=== PATIENT | female | born 1970 | race Caucasian/White ===

== ENCOUNTER 2021-09-22 21:09 | Inpatient (IN) | payer OTHER ==
[2021-09-22] MEDS ORDERED: FAMOTIDINE 20 MG/50 ML IVPB 20 MG/50 ML MG IVPB ONE (21:43)
[2021-09-22] MEDS ORDERED: morphine SULFATE 4 MG/ML VIAL IVPUSH ONE (21:43)
[2021-09-22] MEDS ORDERED: LACTATED RINGERS SOLUTION 1000 ML INFUS.BAG IV ONE (21:43)
[2021-09-22] MEDS ORDERED: ACETAMINOPHEN 1000 MG/100 ML BAG IVPB ONE (21:43)
[2021-09-22] MEDS ORDERED: MAG HYDROX/AL HYDROX/SIMETH -MYLANTA- ORAL SUSPENSION PO ONE (21:45)
[2021-09-22] MEDS ORDERED: FAMOTIDINE 10 MG/ML VIAL IVPB ONE (22:06)
[2021-09-22] MEDS ORDERED: MAG HYDROX/AL HYDROX/SIMETH 30 ML UNIT-DOSE CUP ONE (22:06)
[2021-09-22] MEDS ORDERED: ONDANSETRON 4 MG/2 ML VIAL IVPUSH ONE (22:15)
[2021-09-22 22:41] LABS: BASO % 0.7 % (0-2.0); EOS % 0.1 % (0-4.5); HEMATOCRIT 35.1 % (32.4-45.2); HEMOGLOBIN 12.1 GM/dL (10.7-15.3); LYMPH % 10.5 % (8-40); MCH 29.7 pg (25.7-33.7); MCHC 34.4 g/dl (32.0-36.0); MEAN CELL VOLUME 86.2 fl (80-96); MEAN PLT VOLUME 8.1 fl (7.5-11.1); MONO % 5.4 % (3.8-10.2); NEUT % 83.3 % (42.8-82.8); PLATELET COUNT 238 10^3/uL (134-434); RBC 4.07 M/mm3 (3.60-5.2); WHITE BLOOD COUNT 9.2 K/mm3 (4.0-10.0)
[2021-09-22 23:06] LABS: ALBUMIN 3.2 g/dl (3.4-5.0); BLOOD UREA NITROGEN 22.2 mg/dL (7-18); CALCIUM 9.3 mg/dL (8.5-10.1)
[2021-09-22 23:11] LABS: BILIRUBIN,TOTAL 0.6 mg/dL (0.2-1); TOT PROT 6.8 g/dl (6.4-8.2)
[2021-09-22] MEDS ORDERED: CEPHALEXIN MONOHYDRATE 500 MG CAPSULE (UD) ONE (23:32)
[2021-09-23] MEDS ORDERED: morphine SULFATE 4 MG/ML VIAL IVPUSH ONE (01:27)
[2021-09-23] MEDS ORDERED: morphine SULFATE 4 MG/ML VIAL ONE (01:32)
[2021-09-23] MEDS ORDERED: ASPIRIN 81 MG CHEWABLE TABLETS PO ONE (02:24)
[2021-09-23] MEDS ORDERED: MAG HYDROX/AL HYDROX/SIMETH 30 ML UNIT-DOSE CUP PO PRN (03:30)
[2021-09-23] MEDS ORDERED: LISINOPRIL 20 MG TABLET PO ONE (03:33)
[2021-09-23] MEDS ORDERED: INSULIN (LEVEMIR) 100 UNITS/ML UNITS SQ SCH ×4 (04:00→06:00)
[2021-09-23] MEDS ORDERED: INSULIN (NOVOLOG) ASPART 100 UNITS/ML 10ML VIAL SQ ONE (04:00)
[2021-09-23] MEDS: PANTOPRAZOLE 40 MG TABLET PO SCH ×2 (05:00→09:04)
[2021-09-23] MEDS ORDERED: LISINOPRIL 20 MG TABLET ONE (05:07)
[2021-09-23] MEDS ORDERED: ASPIRIN 81 MG CHEWABLE TABLETS ONE (05:07)
[2021-09-23] MEDS ORDERED: PANTOPRAZOLE 40 MG TABLET PO ONE (05:07)
[2021-09-23] MEDS ORDERED: ONDANSETRON 4 MG/2 ML VIAL ONE (05:44)
[2021-09-23] MEDS: ONDANSETRON 4 MG/2 ML VIAL IVPUSH PRN ×3 (05:45→20:12)
[2021-09-23 06:20] LABS: CALCIUM 8.7 mg/dL (8.5-10.1)
[2021-09-23 06:21] LABS: BLOOD UREA NITROGEN 22.2 mg/dL (7-18); MAGNESIUM 2.2 mg/dL (1.8-2.4)
[2021-09-23 06:24] LABS: PHOSPHOROUS 5.7 mg/dL (2.5-4.9)
[2021-09-23 06:25] LABS: BILIRUBIN,TOTAL 0.6 mg/dL (0.2-1); HEMATOCRIT 34.4 % (32.4-45.2); HEMOGLOBIN 11.6 GM/dL (10.7-15.3); MCH 29.5 pg (25.7-33.7); MCHC 33.7 g/dl (32.0-36.0); MEAN CELL VOLUME 87.6 fl (80-96); MEAN PLT VOLUME 8.4 fl (7.5-11.1); PLATELET COUNT 222 10^3/uL (134-434); RBC 3.93 M/mm3 (3.60-5.2); RDW 13.2 % (11.6-15.6); TOT PROT 6.4 g/dl (6.4-8.2); WHITE BLOOD COUNT 8.4 K/mm3 (4.0-10.0)
[2021-09-23] MEDS: INSULIN SLIDING SCALE (NOVOLOG) 1 VIAL SQ SCH ×4 (07:51→22:07)
[2021-09-23] MEDS: ENOXAPARIN NA (PORCINE) 40 MG/0.4 ML DISP.SYRIN SQ SCH (09:09)
[2021-09-23 09:24] VITALS: BMI 25.1
[2021-09-23] MEDS: morphine SULFATE 4 MG/ML VIAL IVPUSH PRN ×2 (09:55→21:20)
[2021-09-23 11:24] LABS: URINE APPEARANCE HAZY; URINE BILIRUBIN NEGATIVE (NEGATIVE); URINE COLOR YELLOW; URINE GLUCOSE (UA) >1000 (NEGATIVE); URINE KETONE TRACE (NEGATIVE)
[2021-09-23 11:25] LABS: EPI CELLS 22.4 /uL (0-25.1); URINE BACTERIA 9.1 /uL (0-1359); URINE LEUK ESTERASE NEGATIVE (NEGATIVE); URINE NITRITE NEGATIVE (NEGATIVE); URINE PROTEIN 3+ (NEGATIVE); URINE RBC 36.5 /uL (0-23.9); URINE UROBILINOGEN 0.2 mg/dL (0.2-1.0); URINE WBC 16.9 /uL (0-25.8)
[2021-09-23] MEDS: ACETAMINOPHEN 1000 MG/100 ML BAG IVPB PRN (14:16)
[2021-09-23] MEDS ORDERED: hydrALAZINE HCL 20 MG/ML VIAL IVPUSH PRN (14:54)
[2021-09-23] MEDS ORDERED: POTASSIUM CHLORIDE 10 MEQ in SODIUM CHLORIDE 0.45% 1,000 ML IVPB SCH (16:15)
[2021-09-23] MEDS: METOCLOPRAMIDE HCL INJECTION 10 MG/2 ML VIAL IVPUSH PRN (16:29)
[2021-09-23] MEDS: SODIUM CHLORIDE 0.45% 1,000 ML IV SCH (17:45)
[2021-09-23] MEDS: INSULIN (LEVEMIR) 100 UNITS/ML UNITS SQ SCH (22:07)
[2021-09-24] MEDS: PANTOPRAZOLE SODIUM 40 MG VIAL IVPUSH SCH ×2 (00:16→09:36)
[2021-09-24] MEDS: METOCLOPRAMIDE HCL INJECTION 10 MG/2 ML VIAL IVPUSH PRN ×2 (01:00→09:33)
[2021-09-24] MEDS: ACETAMINOPHEN 1000 MG/100 ML BAG IVPB PRN (03:12)
[2021-09-24] MEDS: ONDANSETRON 4 MG/2 ML VIAL IVPUSH PRN (05:09)
[2021-09-24] MEDS: morphine SULFATE 4 MG/ML VIAL IVPUSH PRN (05:19)
[2021-09-24] MEDS: INSULIN (LEVEMIR) 100 UNITS/ML UNITS SQ SCH ×2 (06:02→22:05)
[2021-09-24] MEDS: INSULIN SLIDING SCALE (NOVOLOG) 1 VIAL SQ SCH ×4 (07:03→22:05)
[2021-09-24 07:56] LABS: BASO % 0.5 % (0-2.0); HEMATOCRIT 30.3 % (32.4-45.2); HEMOGLOBIN 10.4 GM/dL (10.7-15.3); LYMPH % 16.8 % (8-40); MCHC 34.5 g/dl (32.0-36.0); MEAN CELL VOLUME 87.1 fl (80-96); MEAN PLT VOLUME 8.4 fl (7.5-11.1); MONO % 8.9 % (3.8-10.2); NEUT % 73.8 % (42.8-82.8); PLATELET COUNT 209 10^3/uL (134-434); RBC 3.48 M/mm3 (3.60-5.2); RDW 12.9 % (11.6-15.6); WHITE BLOOD COUNT 6.6 K/mm3 (4.0-10.0)
[2021-09-24 08:20] LABS: ALBUMIN 2.6 g/dl (3.4-5.0); CALCIUM 7.9 mg/dL (8.5-10.1)
[2021-09-24 08:21] LABS: BLOOD UREA NITROGEN 23.3 mg/dL (7-18)
[2021-09-24 08:23] LABS: CREATININE 0.8 mg/dL (0.55-1.3)
[2021-09-24 08:25] LABS: BILIRUBIN,TOTAL 0.8 mg/dL (0.2-1); TOT PROT 5.6 g/dl (6.4-8.2)
[2021-09-24] MEDS ORDERED: INSULIN (LEVEMIR) 100 UNITS/ML UNITS SQ SCH (09:30)
[2021-09-24] MEDS: ENOXAPARIN NA (PORCINE) 40 MG/0.4 ML DISP.SYRIN SQ SCH (09:36)
[2021-09-24] MEDS ORDERED: LISINOPRIL 20 MG TABLET PO SCH (10:00)
[2021-09-24 12:21] LABS: PHENCYCLIDINE,URINE NEGATIVE (NEGATIVE); URINE BENZODIAZEPINES NEGATIVE (NEGATIVE)
[2021-09-24 12:22] LABS: COCAINE, UR NEGATIVE (NEGATIVE); METHADONE, UR NEGATIVE (NEGATIVE)
[2021-09-24 12:24] LABS: OPIATES, URI POSITIVE (NEGATIVE); URINE AMPHETAMINES NEGATIVE (NEGATIVE); URINE BARBITURATES NEGATIVE (NEGATIVE)
[2021-09-24] MEDS ORDERED: LABETALOL HCL 5 MG/1 ML (100MG/20 ML VIAL) IVPUSH PRN ×2 (13:49→21:42)
[2021-09-24] MEDS ORDERED: POTASSIUM CHLORIDE 10 MEQ PREMIX IVPB (POTASSIUM RIDER) IVPB SCH (13:52)
[2021-09-24] MEDS ORDERED: LORazepam 2 MG/ML SDV VIAL IVPUSH ONE (13:54)
[2021-09-24] MEDS ORDERED: METOCLOPRAMIDE HCL INJECTION 10 MG/2 ML VIAL IVPUSH SCH (14:15)
[2021-09-24] MEDS: POTASSIUM CHLORIDE 10 MEQ PREMIX IVPB (POTASSIUM RIDER) IVPB SCH ×2 (17:19→19:01)
[2021-09-24] MEDS ORDERED: NICARDIPINE 25 MG in DEXTROSE 5%-WATER - 240 ML IVPB SCH (19:00)
[2021-09-24] MEDS: SODIUM CHLORIDE 0.45% 1,000 ML IV SCH (19:54)
[2021-09-24] MEDS ORDERED: MAG HYDROX/AL HYDROX/SIMETH 30 ML UNIT-DOSE CUP PO PRN (21:42)
[2021-09-24] MEDS ORDERED: niCARdipine HCL 25 MG/10 ML AMPUL IVPB ONE (21:48)
[2021-09-24] MEDS ORDERED: CHLORHEXIDINE GLUCONATE 4% CLEANSER FOR DECOLONIZATION TP SCH (22:00)
[2021-09-24] MEDS ORDERED: MUPIROCIN 2% TOPICAL OINTMENT FOR DECOLONIZATION NS SCH (22:00)
[2021-09-24] MEDS: MUPIROCIN 2% TOPICAL OINTMENT FOR DECOLONIZATION NS SCH (23:25)
[2021-09-24] MEDS: CHLORHEXIDINE GLUCONATE 4% CLEANSER FOR DECOLONIZATION TP SCH (23:25)
[2021-09-25] MEDS: METOCLOPRAMIDE HCL INJECTION 10 MG/2 ML VIAL IVPUSH SCH ×3 (02:10→17:22)
[2021-09-25] MEDS: INSULIN (LEVEMIR) 100 UNITS/ML UNITS SQ SCH ×2 (06:36→21:27)
[2021-09-25] MEDS: INSULIN SLIDING SCALE (NOVOLOG) 1 VIAL SQ SCH ×4 (06:38→21:27)
[2021-09-25 07:38] LABS: BASO % 0.7 % (0-2.0); EOS % 0.5 % (0-4.5); HEMATOCRIT 32.8 % (32.4-45.2); HEMOGLOBIN 11.1 GM/dL (10.7-15.3); LYMPH % 30.3 % (8-40); MCH 29.3 pg (25.7-33.7); MCHC 33.9 g/dl (32.0-36.0); MEAN CELL VOLUME 86.4 fl (80-96); MEAN PLT VOLUME 8.1 fl (7.5-11.1); MONO % 11.7 % (3.8-10.2); NEUT % 56.8 % (42.8-82.8); PLATELET COUNT 212 10^3/uL (134-434); RBC 3.79 M/mm3 (3.60-5.2); RDW 12.7 % (11.6-15.6); WHITE BLOOD COUNT 6.5 K/mm3 (4.0-10.0)
[2021-09-25 07:55] LABS: ALBUMIN 2.4 g/dl (3.4-5.0); CALCIUM 7.9 mg/dL (8.5-10.1)
[2021-09-25 07:56] LABS: BLOOD UREA NITROGEN 21.4 mg/dL (7-18); MAGNESIUM 2.4 mg/dL (1.8-2.4)
[2021-09-25 07:58] LABS: CREATININE 0.9 mg/dL (0.55-1.3)
[2021-09-25 08:00] LABS: BILIRUBIN,TOTAL 0.8 mg/dL (0.2-1); TOT PROT 5.4 g/dl (6.4-8.2)
[2021-09-25] MEDS: LISINOPRIL 20 MG TABLET PO SCH (09:24)
[2021-09-25] MEDS: MUPIROCIN 2% TOPICAL OINTMENT FOR DECOLONIZATION NS SCH ×2 (09:36→21:28)
[2021-09-25] MEDS ORDERED: PANTOPRAZOLE SODIUM 40 MG VIAL IVPUSH SCH (10:00)
[2021-09-25] MEDS: NIFEdipine E.R. 30 MG TABLET PO SCH (11:58)
[2021-09-25] MEDS: CHLORHEXIDINE GLUCONATE 4% CLEANSER FOR DECOLONIZATION TP SCH (21:28)
[2021-09-26] MEDS: METOCLOPRAMIDE HCL INJECTION 10 MG/2 ML VIAL IVPUSH SCH ×2 (01:32→09:13)
[2021-09-26] MEDS: INSULIN SLIDING SCALE (NOVOLOG) 1 VIAL SQ SCH ×4 (06:19→22:07)
[2021-09-26] MEDS: INSULIN (LEVEMIR) 100 UNITS/ML UNITS SQ SCH ×2 (06:19→22:06)
[2021-09-26 07:20] LABS: MCH 29.6 pg (25.7-33.7); MCHC 34.6 g/dl (32.0-36.0); MEAN CELL VOLUME 85.6 fl (80-96); MEAN PLT VOLUME 8.2 fl (7.5-11.1); PLATELET COUNT 216 10^3/uL (134-434); RBC 3.74 M/mm3 (3.60-5.2); RDW 12.6 % (11.6-15.6); WHITE BLOOD COUNT 4.7 K/mm3 (4.0-10.0)
[2021-09-26 07:32] LABS: CALCIUM 7.9 mg/dL (8.5-10.1)
[2021-09-26 07:33] LABS: ALBUMIN 2.2 g/dl (3.4-5.0)
[2021-09-26 07:36] LABS: BLOOD UREA NITROGEN 12.3 mg/dL (7-18); CREATININE 0.7 mg/dL (0.55-1.3)
[2021-09-26 07:37] LABS: BILIRUBIN,TOTAL 0.6 mg/dL (0.2-1)
[2021-09-26] MEDS: NIFEdipine E.R. 30 MG TABLET PO SCH (09:13)
[2021-09-26] MEDS: LISINOPRIL 20 MG TABLET PO SCH (09:13)
[2021-09-26] MEDS: MUPIROCIN 2% TOPICAL OINTMENT FOR DECOLONIZATION NS SCH (09:14)
[2021-09-26] MEDS ORDERED: PANTOPRAZOLE 40 MG TABLET PO SCH (10:00)
[2021-09-26] MEDS ORDERED: POTASSIUM CHLORIDE TABS 20 MEQ TABLET.ER (FP) PO ONE (19:09)
[2021-09-26] MEDS ORDERED: LABETALOL HCL 5 MG/1 ML (100MG/20 ML VIAL) IVPUSH PRN (19:46)
[2021-09-26 21:23] LABS: MAGNESIUM 2.4 mg/dL (1.8-2.4)
[2021-09-27] MEDS: INSULIN (LEVEMIR) 100 UNITS/ML UNITS SQ SCH ×2 (06:18→21:25)
[2021-09-27] MEDS: INSULIN SLIDING SCALE (NOVOLOG) 1 VIAL SQ SCH ×4 (06:19→21:25)
[2021-09-27 07:24] LABS: BASO % 0.7 % (0-2.0); EOS % 5.6 % (0-4.5); HEMATOCRIT 30.8 % (32.4-45.2); HEMOGLOBIN 10.6 GM/dL (10.7-15.3); LYMPH % 43.6 % (8-40); MCH 29.8 pg (25.7-33.7); MCHC 34.5 g/dl (32.0-36.0); MEAN CELL VOLUME 86.5 fl (80-96); MEAN PLT VOLUME 8.3 fl (7.5-11.1); MONO % 14.3 % (3.8-10.2); NEUT % 35.8 % (42.8-82.8); PLATELET COUNT 205 10^3/uL (134-434); RBC 3.57 M/mm3 (3.60-5.2); RDW 12.7 % (11.6-15.6); WHITE BLOOD COUNT 4.2 K/mm3 (4.0-10.0)
[2021-09-27 07:41] LABS: ALBUMIN 2.2 g/dl (3.4-5.0); CALCIUM 7.9 mg/dL (8.5-10.1)
[2021-09-27 07:42] LABS: BLOOD UREA NITROGEN 11.6 mg/dL (7-18); MAGNESIUM 2.4 mg/dL (1.8-2.4)
[2021-09-27 07:44] LABS: CREATININE 0.7 mg/dL (0.55-1.3); PHOSPHOROUS 3.6 mg/dL (2.5-4.9)
[2021-09-27 07:46] LABS: BILIRUBIN,TOTAL 0.5 mg/dL (0.2-1); TOT PROT 5.1 g/dl (6.4-8.2)
[2021-09-27] MEDS: NIFEdipine E.R 60 MG TABLET PO SCH (09:19)
[2021-09-27] MEDS: PANTOPRAZOLE 20 MG TABLET PO SCH (09:19)
[2021-09-27] MEDS ORDERED: NIFEdipine E.R. 30 MG TABLET PO SCH (10:00)
[2021-09-27] MEDS ORDERED: LISINOPRIL 20 MG TABLET PO SCH (10:00)
[2021-09-27 11:47] LABS: HEMATOCRIT 30.8 % (32.4-45.2); HEMOGLOBIN 10.6 GM/dL (10.7-15.3); MCH 29.9 pg (25.7-33.7); MCHC 34.5 g/dl (32.0-36.0); MEAN CELL VOLUME 86.5 fl (80-96); MEAN PLT VOLUME 7.9 fl (7.5-11.1); PLATELET COUNT 207 10^3/uL (134-434); RBC 3.56 M/mm3 (3.60-5.2); RDW 12.6 % (11.6-15.6); WHITE BLOOD COUNT 3.6 K/mm3 (4.0-10.0)
[2021-09-27 12:11] LABS: ALBUMIN 2.2 g/dl (3.4-5.0); CALCIUM 7.9 mg/dL (8.5-10.1)
[2021-09-27 12:13] LABS: CREATININE 0.8 mg/dL (0.55-1.3)
[2021-09-27 12:15] LABS: BILIRUBIN,TOTAL 0.7 mg/dL (0.2-1)
[2021-09-28 07:15] LABS: HEMATOCRIT 29.8 % (32.4-45.2); HEMOGLOBIN 10.3 GM/dL (10.7-15.3); MCH 29.6 pg (25.7-33.7); MCHC 34.4 g/dl (32.0-36.0); MEAN CELL VOLUME 86.2 fl (80-96); MEAN PLT VOLUME 8.3 fl (7.5-11.1); PLATELET COUNT 222 10^3/uL (134-434); RBC 3.46 M/mm3 (3.60-5.2); RDW 12.5 % (11.6-15.6); WHITE BLOOD COUNT 4.8 K/mm3 (4.0-10.0)
[2021-09-28] MEDS: INSULIN SLIDING SCALE (NOVOLOG) 1 VIAL SQ SCH ×2 (07:17→10:45)
[2021-09-28] MEDS: INSULIN (LEVEMIR) 100 UNITS/ML UNITS SQ SCH (07:17)
[2021-09-28 07:33] LABS: BLOOD UREA NITROGEN 15.8 mg/dL (7-18); CALCIUM 8.2 mg/dL (8.5-10.1)
[2021-09-28 07:37] LABS: CREATININE 0.6 mg/dL (0.55-1.3)
[2021-09-28] MEDS ORDERED: HYDROCHLOROTHIAZIDE 25 MG TABLET (FP) PO ONE (09:30)
[2021-09-28] MEDS: NIFEdipine E.R 60 MG TABLET PO SCH (09:52)
[2021-09-28] MEDS: PANTOPRAZOLE 20 MG TABLET PO SCH (09:52)
[2021-09-28] MEDS ORDERED: HYDROCHLOROTHIAZIDE 25 MG TABLET (FP) PO SCH (10:00)
[2021-09-28 13:37] VITALS: BP 167/82; PULSE 84; TEMP 98.3
[2021-09-28] MEDS ORDERED: LISINOPRIL 20 MG TABLET PO SCH (22:00)
[2021-10-09 16:08] LABS: RENIN ACTIVITY(PRA) 0.491 ng/mL/hr (0.167-5.380)
== END 2021-09-28 13:46 | disposition home or self-care (01) | DRG 44 ==
LOC: JER 21:09 → JERBED 09-23 02:27 → OBSVTOIN 09-23 03:39 → J4W 09-23 05:57 → JICU 09-24 21:36 → J2W 09-26 19:44
PROVIDERS: ADMIT Hospitalist
DX: I62.01 Nontraumatic acute subdural hemorrhage (principal); E11.43 Type 2 diabetes mellitus with diabetic autonomic (poly)neuropathy; I16.1 Hypertensive emergency; I10 Essential (primary) hypertension; E78.5 Hyperlipidemia, unspecified; K31.84 Gastroparesis; E11.65 Type 2 diabetes mellitus with hyperglycemia; R11.2 Nausea with vomiting, unspecified; I16.0 Hypertensive urgency; N31.9 Neuromuscular dysfunction of bladder, unspecified; K21.9 Gastro-esophageal reflux disease without esophagitis; R33.9 Retention of urine, unspecified; D25.9 Leiomyoma of uterus, unspecified
CPT/HCPCS: 36415; 70450-TC; 70496-TC; 70498-TC; 71046-TC-FY; 71275-TC; 74174-TC; 76705-TC; 80048; 80053; 80307; 81003; 82088; 82384; 82533; 82962; 83036; 83690; 83735; 83835; 84100; 84244; 84439; 84443; 84484; 85025; 85027; 87086; 93005; 93010; 97116-GP; 97161-GP; 99285-25; C9803-CS; G0378; Q9967; U0003; U0005

== ENCOUNTER 2021-10-20 06:45 | Inpatient (IN) | payer OTHER ==
[2021-10-20] MEDS ORDERED: MAG HYDROX/AL HYDROX/SIMETH 30 ML UNIT-DOSE CUP ONE (07:34)
[2021-10-20] MEDS ORDERED: ACETAMINOPHEN INJECTION 100 ML IVPB ONE ×2 (07:34→15:23)
[2021-10-20] MEDS ORDERED: FAMOTIDINE 20 MG/50 ML IVPB 20 MG/50 ML MG IVPB ONE ×2 (07:34→07:43)
[2021-10-20] MEDS ORDERED: ACETAMINOPHEN 1000 MG/100 ML BAG IVPB ONE ×2 (07:43→15:23)
[2021-10-20] MEDS ORDERED: MAG HYDROX/AL HYDROX/SIMETH 30 ML UNIT-DOSE CUP PO ONE (07:43)
[2021-10-20] MEDS ORDERED: SODIUM CHLORIDE 0.9% 500 ML INFUS.BAG IV ONE (07:48)
[2021-10-20 08:57] LABS: VENOUS BASE EXCESS 2.5 mmol/L (-2-2); VENOUS O2 SATURATION 78.6 % (70-80); VENOUS PCO2 27.2 mmHg (38-52); VENOUS PH 7.557 (7.310-7.410)
[2021-10-20 09:14] LABS: BASO % 0.6 % (0-2.0); HEMATOCRIT 36.1 % (32.4-45.2); HEMOGLOBIN 12.6 GM/dL (10.7-15.3); LYMPH % 14.3 % (8-40); MCHC 34.8 g/dl (32.0-36.0); MEAN CELL VOLUME 86.4 fl (80-96); MEAN PLT VOLUME 9.3 fl (7.5-11.1); MONO % 9.4 % (3.8-10.2); NEUT % 75.7 % (42.8-82.8); PLATELET COUNT 248 10^3/uL (134-434); RBC 4.18 M/mm3 (3.60-5.2); RDW 12.6 % (11.6-15.6); WHITE BLOOD COUNT 8.5 K/mm3 (4.0-10.0)
[2021-10-20 09:19] LABS: CHLORIDE 91 mmol/L (98-107); SODIUM 132 mmol/L (136-145)
[2021-10-20 09:22] LABS: ALBUMIN 3.5 g/dl (3.4-5.0); ANION GAP 16 MMOL/L (8-16); BLOOD UREA NITROGEN 41.1 mg/dL (7-18); CALCIUM 9.4 mg/dL (8.5-10.1); CO2 25 mmol/L (21-32); LIPASE 98 U/L (73-393)
[2021-10-20 09:25] LABS: CREATININE 1.7 mg/dL (0.55-1.3); SGOT/AST 15 U/L (15-37); SGPT/ALT 28 U/L (13-61)
[2021-10-20 09:26] LABS: BILIRUBIN,TOTAL 0.8 mg/dL (0.2-1)
[2021-10-20] MEDS ORDERED: ONDANSETRON 4 MG/2 ML VIAL IVPUSH ONE (09:26)
[2021-10-20 09:27] LABS: TOT PROT 7.7 g/dl (6.4-8.2)
[2021-10-20] MEDS ORDERED: ONDANSETRON 4 MG/2 ML VIAL ONE (09:27)
[2021-10-20 09:28] LABS: ALK PHOS 107 U/L (45-117)
[2021-10-20 09:36] LABS: GLUCOSE,RANDOM 602 mg/dL (74-106)
[2021-10-20] MEDS ORDERED: INSULIN REGULAR HUMAN 100 UNITS/ML *VIAL IVPUSH ONE (10:09)
[2021-10-20] MEDS ORDERED: KCL 10 MEQ IVPB 20 MEQ/200 ML INFUS.BAG IVPB ONE (10:17)
[2021-10-20] MEDS: KCL 10 MEQ IVPB 10 MEQ/100 ML INFUS.BAG IVPB SCH ×2 (10:23→12:19)
[2021-10-20 15:03] LABS: CHLORIDE 102 mmol/L (98-107); SODIUM 138 mmol/L (136-145)
[2021-10-20 15:05] LABS: ANION GAP 9 MMOL/L (8-16); BLOOD UREA NITROGEN 35.6 mg/dL (7-18); CO2 27 mmol/L (21-32)
[2021-10-20 15:08] LABS: CREATININE 1.1 mg/dL (0.55-1.3)
[2021-10-20 15:29] LABS: GLUCOSE,RANDOM 415 mg/dL (74-106)
[2021-10-20 16:34] LABS: CHOLESTEROL 221 mg/dL (50-200); TRIGLYCERIDES 190 mg/dL (0-150)
[2021-10-20 16:35] LABS: LDL CHOLESTEROL (ONLY SJRH) 114 mg/dL (5-100)
[2021-10-20 16:37] LABS: HDL CHOLESTEROL 80 mg/dL (40-60)
[2021-10-20] MEDS ORDERED: ACETAMINOPHEN 1000 MG/100 ML BAG IVPB PRN (21:07)
[2021-10-20] MEDS ORDERED: morphine CARPU-JECT 2 MG/1 ML DISP.SYRIN IVPUSH PRN (21:08)
[2021-10-21] MEDS ORDERED: ACETAMINOPHEN INJECTION 100 ML IVPB ONE (03:21)
[2021-10-21] MEDS ORDERED: INSULIN (LEVEMIR) 100 UNITS/ML UNITS SQ SCH (07:00)
[2021-10-21] MEDS ORDERED: HEPARIN NA (PORCINE) 5,000 UNITS/ML 1ML VIAL ONE ×3 (07:12→22:36)
[2021-10-21] MEDS: HEPARIN NA (PORCINE) 5,000 UNITS/ML 1ML VIAL SQ SCH ×3 (07:19→22:42)
[2021-10-21] MEDS ORDERED: INSULIN (LEVEMIR) 100 UNITS/ML UNITS SQ ONE (07:22)
[2021-10-21] MEDS ORDERED: INSULIN (NOVOLOG MIX 70/30) 100 UNITS/ML MDV SQ ONE (07:23)
[2021-10-21] MEDS: INSULIN SLIDING SCALE (NOVOLOG) 1 VIAL SQ SCH ×4 (08:19→23:25)
[2021-10-21 08:27] LABS: BASO % 0.8 % (0-2.0); HEMATOCRIT 34.8 % (32.4-45.2); LYMPH % 13.5 % (8-40); MCH 30.1 pg (25.7-33.7); MCHC 34.6 g/dl (32.0-36.0); MEAN CELL VOLUME 86.8 fl (80-96); MEAN PLT VOLUME 8.9 fl (7.5-11.1); MONO % 7.6 % (3.8-10.2); NEUT % 78.1 % (42.8-82.8); PLATELET COUNT 212 10^3/uL (134-434); RDW 12.6 % (11.6-15.6); WHITE BLOOD COUNT 7.7 K/mm3 (4.0-10.0)
[2021-10-21 08:41] LABS: CALCIUM 8.6 mg/dL (8.5-10.1)
[2021-10-21] MEDS ORDERED: ONDANSETRON 4 MG/2 ML VIAL ONE ×2 (08:41→14:39)
[2021-10-21 08:42] LABS: MAGNESIUM 3.1 mg/dL (1.8-2.4)
[2021-10-21 08:44] LABS: PHOSPHOROUS 3.4 mg/dL (2.5-4.9)
[2021-10-21 08:45] LABS: CREATININE 0.9 mg/dL (0.55-1.3)
[2021-10-21 08:46] LABS: BILIRUBIN,TOTAL 0.7 mg/dL (0.2-1); TOT PROT 6.5 g/dl (6.4-8.2)
[2021-10-21] MEDS: ONDANSETRON 4 MG/2 ML VIAL IVPUSH PRN ×2 (08:49→14:49)
[2021-10-21] MEDS ORDERED: PANTOPRAZOLE 20 MG TABLET PO ONE (09:58)
[2021-10-21] MEDS ORDERED: NIFEdipine E.R 60 MG TABLET ONE (09:58)
[2021-10-21] MEDS: PANTOPRAZOLE 20 MG TABLET PO SCH (10:05)
[2021-10-21] MEDS: NIFEdipine E.R 60 MG TABLET PO SCH (10:05)
[2021-10-21] MEDS ORDERED: MAG HYDROX/AL HYDROX/SIMETH 30 ML UNIT-DOSE CUP ONE ×2 (12:39→18:50)
[2021-10-21] MEDS: MAG HYDROX/AL HYDROX/SIMETH 30 ML UNIT-DOSE CUP PO SCH ×3 (12:44→23:46)
[2021-10-21] MEDS ORDERED: ATORVASTATIN CA 10 MG TABLET (FP) ONE (22:36)
[2021-10-21] MEDS: ATORVASTATIN CA 10 MG TABLET (FP) PO SCH (22:42)
[2021-10-21] MEDS: INSULIN (LEVEMIR) 100 UNITS/ML UNITS SQ SCH (23:25)
[2021-10-22] MEDS: HEPARIN NA (PORCINE) 5,000 UNITS/ML 1ML VIAL SQ SCH ×3 (05:45→21:45)
[2021-10-22] MEDS: MAG HYDROX/AL HYDROX/SIMETH 30 ML UNIT-DOSE CUP PO SCH ×3 (05:45→18:30)
[2021-10-22] MEDS: INSULIN (LEVEMIR) 100 UNITS/ML UNITS SQ SCH ×2 (07:34→21:51)
[2021-10-22] MEDS: INSULIN SLIDING SCALE (NOVOLOG) 1 VIAL SQ SCH ×4 (07:34→21:52)
[2021-10-22 07:41] LABS: BASO % 1.2 % (0-2.0); EOS % 0.1 % (0-4.5); HEMATOCRIT 34.1 % (32.4-45.2); HEMOGLOBIN 12.1 GM/dL (10.7-15.3); LYMPH % 26.4 % (8-40); MCHC 35.3 g/dl (32.0-36.0); MEAN CELL VOLUME 84.8 fl (80-96); MEAN PLT VOLUME 8.7 fl (7.5-11.1); MONO % 9.8 % (3.8-10.2); NEUT % 62.5 % (42.8-82.8); PLATELET COUNT 212 10^3/uL (134-434); RBC 4.02 M/mm3 (3.60-5.2); RDW 12.6 % (11.6-15.6); WHITE BLOOD COUNT 5.8 K/mm3 (4.0-10.0)
[2021-10-22 08:09] LABS: ALBUMIN 2.6 g/dl (3.4-5.0); CALCIUM 8.1 mg/dL (8.5-10.1); MAGNESIUM 2.9 mg/dL (1.8-2.4)
[2021-10-22 08:12] LABS: CREATININE 0.7 mg/dL (0.55-1.3); PHOSPHOROUS 1.9 mg/dL (2.5-4.9)
[2021-10-22 08:14] LABS: BILIRUBIN,TOTAL 0.7 mg/dL (0.2-1)
[2021-10-22] MEDS: NIFEdipine E.R 60 MG TABLET PO SCH (10:01)
[2021-10-22] MEDS: PANTOPRAZOLE 20 MG TABLET PO SCH (10:01)
[2021-10-22] MEDS ORDERED: POTASSIUM PHOSPHATE 15 MM in SODIUM CHLORIDE 250 ML IVPB ONE (10:55)
[2021-10-22] MEDS: METOCLOPRAMIDE HCL INJECTION 10 MG/2 ML VIAL IVPUSH PRN (11:37)
[2021-10-22 13:21] VITALS: BMI 24.6
[2021-10-22] MEDS: ATORVASTATIN CA 10 MG TABLET (FP) PO SCH (21:45)
[2021-10-23] MEDS: MAG HYDROX/AL HYDROX/SIMETH 30 ML UNIT-DOSE CUP PO SCH ×4 (00:35→17:41)
[2021-10-23] MEDS: HEPARIN NA (PORCINE) 5,000 UNITS/ML 1ML VIAL SQ SCH ×3 (06:45→21:44)
[2021-10-23] MEDS: INSULIN SLIDING SCALE (NOVOLOG) 1 VIAL SQ SCH ×4 (06:46→21:45)
[2021-10-23] MEDS: INSULIN (LEVEMIR) 100 UNITS/ML UNITS SQ SCH ×2 (07:01→21:44)
[2021-10-23] MEDS: PANTOPRAZOLE 40 MG TABLET PO SCH ×2 (08:32→09:41)
[2021-10-23] MEDS: NIFEdipine E.R. 90 MG TABLET PO SCH ×2 (08:33→09:41)
[2021-10-23] MEDS ORDERED: REGADENOSON 0.4 MG/5 ML PRE-FILLED SYRINGE IVPUSH ONE ×2 (12:40→12:45)
[2021-10-23] MEDS ORDERED: LISINOPRIL 5 MG TABLET PO SCH (13:45)
[2021-10-23] MEDS ORDERED: ATORVASTATIN CA 40 MG TABLET (FP) PO SCH (15:27)
[2021-10-23] MEDS: METOCLOPRAMIDE HCL INJECTION 10 MG/2 ML VIAL IVPUSH PRN (15:46)
[2021-10-24] MEDS: MAG HYDROX/AL HYDROX/SIMETH 30 ML UNIT-DOSE CUP PO SCH ×3 (01:05→12:07)
[2021-10-24] MEDS: HEPARIN NA (PORCINE) 5,000 UNITS/ML 1ML VIAL SQ SCH ×2 (06:36→13:31)
[2021-10-24] MEDS: INSULIN (LEVEMIR) 100 UNITS/ML UNITS SQ SCH (06:37)
[2021-10-24] MEDS: INSULIN SLIDING SCALE (NOVOLOG) 1 VIAL SQ SCH ×2 (06:37→11:52)
[2021-10-24] MEDS: NIFEdipine E.R. 90 MG TABLET PO SCH (09:41)
[2021-10-24] MEDS: PANTOPRAZOLE 40 MG TABLET PO SCH (09:41)
[2021-10-24] MEDS ORDERED: ENALAPRIL MALEATE 10 MG TABLET PO SCH (10:00)
[2021-10-24] MEDS ORDERED: MINERAL OIL ENEMA 133 ML ENEMA RC ONE (12:45)
[2021-10-24 14:57] VITALS: BP 115/61; PULSE 84; TEMP 98.2
== END 2021-10-24 15:33 | disposition home or self-care (01) | DRG 48 ==
LOC: JER 06:45 → JERBED 10:11 → J4W 10-21 23:13
PROVIDERS: ADMIT Internal Medicine
DX: E11.43 Type 2 diabetes mellitus with diabetic autonomic (poly)neuropathy (principal); N17.9 Acute kidney failure, unspecified; E11.65 Type 2 diabetes mellitus with hyperglycemia; I25.2 Old myocardial infarction; K29.70 Gastritis, unspecified, without bleeding; R11.2 Nausea with vomiting, unspecified; K31.84 Gastroparesis; E78.5 Hyperlipidemia, unspecified; K21.9 Gastro-esophageal reflux disease without esophagitis
CPT/HCPCS: 36415; 70450-TC; 71045-TC-FY; 71275-TC; 78452-TC; 80048; 80053; 80061; 82010; 82803; 82962; 83036; 83690; 83735; 84100; 84443; 84484; 85025; 85379; 93005; 93010; 93017; 93306-TC; 99285-25; A9502; C9803-CS; J1644; J2785; Q9967; U0003; U0005

== ENCOUNTER 2022-02-20 13:58 | Emergency (ER) | payer OTHER ==
[2022-02-20 14:06] VITALS: BP 159/78; PULSE 90; RESP 20; TEMP 97.6; BMI 26.6
[2022-02-20] MEDS ORDERED: KETOROLAC TROMETHAMINE 30 MG/1 ML VIAL IM ONE (14:51)
[2022-02-20] MEDS ORDERED: KETOROLAC TROMETHAMINE 30 MG/1 ML VIAL ONE (14:54)
[2022-02-20 15:15] LABS: HCG,QUALITATIVE URINE Negative
[2022-02-20 15:17] LABS: EPI CELLS 12 /uL (0-25.1); HYALINE CASTS 4 /uL (0-3.1); URINE APPEARANCE TURBID; URINE BILIRUBIN NEGATIVE (NEGATIVE); URINE COLOR YELLOW; URINE GLUCOSE (UA) 2+ (NEGATIVE); URINE KETONE NEGATIVE (NEGATIVE); URINE LEUK ESTERASE 3+ (NEGATIVE); URINE NITRITE POSITIVE (NEGATIVE); URINE PROTEIN 4+ (NEGATIVE); URINE UROBILINOGEN 0.2 mg/dL (0.2-1.0); URINE WBC 13316 /uL (0-25.8)
[2022-02-20] MEDS ORDERED: CEPHALEXIN MONOHYDRATE 500 MG CAPSULE (UD) PO ONE (15:31)
[2022-02-20 15:33] LABS: URINE BACTERIA 2000 /uL (0-1359); URINE RBC 955.6 /uL (0-23.9)
[2022-02-20] MEDS ORDERED: CEPHALEXIN MONOHYDRATE 500 MG CAPSULE (UD) ONE (15:33)
[2022-02-20 15:34] LABS: YEAST NO SEEN (NEGATIVE)
== END 2022-02-20 15:42 | disposition home or self-care (01) ==
LOC: JERFT 13:58
PROC: 3E0233Z Introduction of Anti-inflammatory into Muscle, Percutaneous Approach (ICD-10-PCS; principal; 2022-02-20)
DX: N39.0 Urinary tract infection, site not specified (principal)
CPT/HCPCS: 81003; 84703; 87086; 87186; 99284-25

== ENCOUNTER 2022-11-13 12:02 | Emergency (ER) | payer OTHER ==
[2022-11-13 12:18] VITALS: BP 108/51; PULSE 101; RESP 18; TEMP 99.9; BMI 27.8
[2022-11-13] MEDS ORDERED: SODIUM CHLORIDE 0.9% 500 ML INFUS.BAG IV ONE (13:04)
[2022-11-13] MEDS ORDERED: FAMOTIDINE 20 MG/50 ML IVPB 20 MG/50 ML MG IVPB ONE ×2 (13:05→13:31)
[2022-11-13 13:23] LABS: BASO % 0.6 % (0-2.0); HEMATOCRIT 32.5 % (32.4-45.2); HEMOGLOBIN 10.7 GM/dL (10.7-15.3); LYMPH % 5.5 % (8-40); MCHC 33.1 g/dl (32.0-36.0); MEAN CELL VOLUME 87.5 fl (80-96); MEAN PLT VOLUME 8.7 fl (7.5-11.1); MONO % 5.3 % (3.8-10.2); NEUT % 86.6 % (42.8-82.8); PLATELET COUNT 259 10^3/uL (134-434); RBC 3.71 M/mm3 (3.60-5.2); RDW 12.5 % (11.6-15.6); WHITE BLOOD COUNT 10.9 K/mm3 (4.0-10.0)
[2022-11-13 13:26] LABS: EPI CELLS 20 /uL (0-25.1); HYALINE CASTS 0 /uL (0-3.1); PH,URINE 5.5 (5.0-8.0); URINE APPEARANCE CLOUDY; URINE BACTERIA 5674 /uL (0-1359); URINE BILIRUBIN NEGATIVE (NEGATIVE); URINE COLOR YELLOW; URINE GLUCOSE (UA) 3+ (NEGATIVE); URINE KETONE NEGATIVE (NEGATIVE); URINE LEUK ESTERASE 2+ (NEGATIVE); URINE NITRITE NEGATIVE (NEGATIVE); URINE PROTEIN 3+ (NEGATIVE); URINE RBC 51 /uL (0-23.9); URINE UROBILINOGEN 0.2 mg/dL (0.2-1.0); URINE WBC 1249 /uL (0-25.8)
[2022-11-13 13:45] LABS: POTASSIUM 4.3 mmol/L (3.5-5.1)
[2022-11-13 13:47] LABS: BLOOD UREA NITROGEN 23.4 mg/dL (7-18); CALCIUM 9.1 mg/dL (8.5-10.1)
[2022-11-13 13:50] LABS: CREATININE 1.6 mg/dL (0.55-1.3)
[2022-11-13 13:52] LABS: BILIRUBIN,TOTAL 0.5 mg/dL (0.2-1); TOT PROT 7.1 g/dl (6.4-8.2)
[2022-11-13] MEDS ORDERED: CEFTRIAXONE 1 GM/50 ML BAG ONE (14:49)
== END 2022-11-13 17:15 | disposition home or self-care (01) ==
LOC: JERFT 12:02
PROC: 3E03329 Introduction of Other Anti-infective into Peripheral Vein, Percutaneous Approach (ICD-10-PCS; principal; 2022-11-13)
PROC: 3E033GC Introduction of Other Therapeutic Substance into Peripheral Vein, Percutaneous Approach (ICD-10-PCS; 2022-11-13)
DX: R10.9 Unspecified abdominal pain (principal); N39.0 Urinary tract infection, site not specified
CPT/HCPCS: 36415; 74176-TC; 80053; 81003; 84484; 85025; 87086; 87186; 93005; 93010; 99285-25

== ENCOUNTER 2023-10-20 20:37 | Inpatient (IN) | payer OTHER ==
[2023-10-20 20:43] VITALS: BMI 26.4
[2023-10-20] MEDS ORDERED: METOCLOPRAMIDE HCL INJECTION 10 MG/2 ML VIAL ONE (21:10)
[2023-10-20] MEDS ORDERED: FAMOTIDINE 20 MG/50 ML IVPB 20 MG/50 ML MG IVPB ONE (21:13)
[2023-10-20] MEDS: FAMOTIDINE 20 MG/50 ML IVPB 20 MG/50 ML MG IVPB ONE (21:17)
[2023-10-20] MEDS: METOCLOPRAMIDE HCL INJECTION 10 MG/2 ML VIAL IVPUSH ONE (21:17)
[2023-10-20] MEDS: SODIUM CHLORIDE 1,000 ML IV STA (21:17)
[2023-10-20 21:21] LABS: BASO % 1.1 % (0-2.0); HEMATOCRIT 35.9 % (32.4-45.2); HEMOGLOBIN 12.3 GM/dL (10.7-15.3); LYMPH % 16.2 % (8-40); MCH 29.9 pg (25.7-33.7); MCHC 34.2 g/dl (32.0-36.0); MEAN CELL VOLUME 87.6 fl (80-96); MEAN PLT VOLUME 8.9 fl (7.5-11.1); MONO % 5.3 % (3.8-10.2); NEUT % 68.4 % (42.8-82.8); PLATELET COUNT 306 10^3/uL (134-434); RDW 13.5 % (11.6-15.6); WHITE BLOOD COUNT 10.6 K/mm3 (4.0-10.0)
[2023-10-20] MEDS ORDERED: ACETAMINOPHEN INJECTION 100 ML IVPB ONE (21:33)
[2023-10-20 21:43] LABS: POTASSIUM 4.3 mmol/L (3.5-5.1)
[2023-10-20 21:45] LABS: CALCIUM 8.8 mg/dL (8.5-10.1)
[2023-10-20 21:46] LABS: ALBUMIN 2.8 g/dl (3.4-5.0); BLOOD UREA NITROGEN 29.3 mg/dL (7-18)
[2023-10-20 21:48] LABS: CREATININE 1.5 mg/dL (0.55-1.3)
[2023-10-20] MEDS: ACETAMINOPHEN 1000 MG/100 ML BAG IVPB ONE (21:48)
[2023-10-20 21:50] LABS: BILIRUBIN,TOTAL 0.4 mg/dL (0.2-1); TOT PROT 7.1 g/dl (6.4-8.2)
[2023-10-20 22:02] LABS: VENOUS O2 SATURATION 82.4 % (70-80); VENOUS PCO2 43.7 mmHg (38-52); VENOUS PH 7.336 (7.310-7.410)
[2023-10-20 22:19] LABS: MAGNESIUM 2.3 mg/dL (1.8-2.4)
[2023-10-20 22:23] LABS: PHOSPHOROUS 3.5 mg/dL (2.5-4.9)
[2023-10-20] MEDS ORDERED: MECLIZINE HCL 25 MG TABLET (FP) ONE (23:51)
[2023-10-20] MEDS: SODIUM CHLORIDE 0.9% 500 ML INFUS.BAG IV ONE (23:58)
[2023-10-20] MEDS: MECLIZINE HCL 25 MG TABLET (FP) PO ONE (23:58)
[2023-10-21] MEDS ORDERED: METOCLOPRAMIDE HCL INJECTION 10 MG/2 ML VIAL ONE ×2 (03:27→12:17)
[2023-10-21] MEDS: METOCLOPRAMIDE HCL INJECTION 10 MG/2 ML VIAL IVPUSH PRN (03:35)
[2023-10-21 03:36] LABS: EPI CELLS 16 /uL (0-25.1); HYALINE CASTS 1 /uL (0-3.1); PH,URINE 5.5 (5.0-8.0); URINE APPEARANCE CLOUDY; URINE BILIRUBIN NEGATIVE (NEGATIVE); URINE COLOR YELLOW; URINE GLUCOSE (UA) 3+ (NEGATIVE); URINE KETONE 1+ (NEGATIVE); URINE LEUK ESTERASE NEGATIVE (NEGATIVE); URINE NITRITE NEGATIVE (NEGATIVE); URINE PROTEIN 3+ (NEGATIVE); URINE RBC 406 /uL (0-23.9); URINE UROBILINOGEN 0.2 mg/dL (0.2-1.0)
[2023-10-21 06:16] LABS: EOS % 0.3 % (0-4.5); HEMATOCRIT 31.8 % (32.4-45.2); HEMOGLOBIN 10.6 GM/dL (10.7-15.3); LYMPH % 10.9 % (8-40); MCH 29.7 pg (25.7-33.7); MCHC 33.3 g/dl (32.0-36.0); MEAN CELL VOLUME 89.3 fl (80-96); MEAN PLT VOLUME 9.2 fl (7.5-11.1); MONO % 3.2 % (3.8-10.2); NEUT % 84.6 % (42.8-82.8); PLATELET COUNT 247 10^3/uL (134-434); RBC 3.56 M/mm3 (3.60-5.2); RDW 13.1 % (11.6-15.6); WHITE BLOOD COUNT 9.5 K/mm3 (4.0-10.0)
[2023-10-21] MEDS ORDERED: INSULIN (LEVEMIR) 100 UNITS/ML UNITS SQ ONE (06:19)
[2023-10-21] MEDS: INSULIN (LEVEMIR) 100 UNITS/ML UNITS SQ ONE (06:23)
[2023-10-21 06:31] LABS: POTASSIUM 4.5 mmol/L (3.5-5.1)
[2023-10-21 06:36] LABS: CALCIUM 8.5 mg/dL (8.5-10.1)
[2023-10-21 06:37] LABS: ALBUMIN 2.4 g/dl (3.4-5.0); BLOOD UREA NITROGEN 27.6 mg/dL (7-18); MAGNESIUM 2.1 mg/dL (1.8-2.4)
[2023-10-21 06:39] LABS: PHOSPHOROUS 4.6 mg/dL (2.5-4.9)
[2023-10-21 06:40] LABS: CREATININE 1.3 mg/dL (0.55-1.3)
[2023-10-21 06:41] LABS: BILIRUBIN,TOTAL 0.4 mg/dL (0.2-1); TOT PROT 6.1 g/dl (6.4-8.2)
[2023-10-21] MEDS: INSULIN ASPART SLIDING SCALE (NOVOLOG) 1 VIAL SQ SCH (07:36)
[2023-10-21 07:49] LABS: URINE BACTERIA 370005.3 /uL (0-1359)
[2023-10-21] MEDS ORDERED: ONDANSETRON 4 MG/2 ML VIAL IVPUSH PRN (08:59)
[2023-10-21] MEDS ORDERED: INSULIN (LEVEMIR) 100 UNITS/ML UNITS SQ SCH (10:00)
[2023-10-21] MEDS: HEPARIN NA (PORCINE) 5,000 UNITS/ML 1ML VIAL SQ SCH (11:00)
[2023-10-21] MEDS: NIFEdipine E.R 60 MG TABLET PO SCH (11:00)
[2023-10-21] MEDS: PANTOPRAZOLE 40 MG TABLET PO SCH (11:00)
[2023-10-21] MEDS ORDERED: HEPARIN NA (PORCINE) 5,000 UNITS/ML 1ML VIAL ONE ×2 (11:33→22:35)
[2023-10-21] MEDS: INSULIN (LEVEMIR) 100 UNITS/ML UNITS SQ SCH (11:45)
[2023-10-21] MEDS: METOCLOPRAMIDE HCL INJECTION 10 MG/2 ML VIAL IVPUSH SCH (12:46)
[2023-10-21] MEDS ORDERED: MAG HYDROX/AL HYDROX/SIMETH 30 ML UNIT-DOSE CUP ONE (12:47)
[2023-10-21] MEDS: SODIUM CHLORIDE 1,000 ML IV SCH (13:05)
[2023-10-21] MEDS ORDERED: ACETAMINOPHEN INJECTION 100 ML IVPB ONE ×2 (13:07→22:56)
[2023-10-21] MEDS: ACETAMINOPHEN 1000 MG/100 ML BAG IVPB PRN (13:11)
[2023-10-21] MEDS: morphine SULFATE 4 MG/ML VIAL IVPUSH ONE (16:32)
[2023-10-21] MEDS ORDERED: morphine SULFATE 4 MG/ML VIAL ONE (16:37)
[2023-10-21] MEDS ORDERED: INSULIN (NOVOLOG) ASPART 100 UNITS/ML 10ML VIAL ONE ×2 (16:38→22:46)
[2023-10-21] MEDS ORDERED: LORATADINE 10 MG TABLET ONE (16:55)
[2023-10-21] MEDS: LORATADINE 10 MG TABLET PO SCH (17:42)
[2023-10-21] MEDS: FLUTICASONE PROP 0.05% 16 GM NASAL SPRAY NS SCH (22:52)
[2023-10-21] MEDS ORDERED: MECLIZINE HCL 25 MG TABLET (FP) ONE (22:56)
[2023-10-21] MEDS: MECLIZINE HCL 25 MG TABLET (FP) PO PRN (23:02)
[2023-10-22] MEDS ORDERED: METOCLOPRAMIDE HCL INJECTION 10 MG/2 ML VIAL ONE (00:53)
[2023-10-22 07:22] LABS: BASO % 0.7 % (0-2.0); EOS % 5.4 % (0-4.5); HEMATOCRIT 32.2 % (32.4-45.2); HEMOGLOBIN 10.6 GM/dL (10.7-15.3); LYMPH % 21.5 % (8-40); MCH 29.7 pg (25.7-33.7); MCHC 32.8 g/dl (32.0-36.0); MEAN CELL VOLUME 90.6 fl (80-96); MEAN PLT VOLUME 8.6 fl (7.5-11.1); MONO % 8.9 % (3.8-10.2); NEUT % 63.5 % (42.8-82.8); PLATELET COUNT 256 10^3/uL (134-434); RBC 3.55 M/mm3 (3.60-5.2); WHITE BLOOD COUNT 8.7 K/mm3 (4.0-10.0)
[2023-10-22 07:42] LABS: ALBUMIN 2.2 g/dl (3.4-5.0); BLOOD UREA NITROGEN 21.6 mg/dL (7-18); CALCIUM 8.5 mg/dL (8.5-10.1); MAGNESIUM 2.3 mg/dL (1.8-2.4)
[2023-10-22 07:44] LABS: PHOSPHOROUS 2.9 mg/dL (2.5-4.9)
[2023-10-22 07:45] LABS: CREATININE 1.3 mg/dL (0.55-1.3); TOT PROT 5.8 g/dl (6.4-8.2)
[2023-10-22 07:46] LABS: BILIRUBIN,TOTAL 0.3 mg/dL (0.2-1)
[2023-10-22] MEDS: PANTOPRAZOLE SODIUM 40 MG VIAL IVPUSH SCH (11:38)
[2023-10-22] MEDS: TOPIRAMATE 25 MG TABLET PO SCH (11:39)
[2023-10-22] MEDS: CEFTRIAXONE 1 GM in DEXTROSE 5%-WATER - 50 ML IVPB SCH (12:23)
[2023-10-22] MEDS: hydrALAZINE HCL 25 MG TABLET (FP) PO ONE (14:33)
[2023-10-22] MEDS: PANTOPRAZOLE SODIUM 40 MG VIAL IVPUSH ONE (15:42)
[2023-10-22] MEDS: LISINOPRIL 20 MG TABLET PO SCH (21:53)
[2023-10-23 07:27] LABS: BASO % 0.7 % (0-2.0); EOS % 0.2 % (0-4.5); HEMATOCRIT 33.1 % (32.4-45.2); HEMOGLOBIN 11.1 GM/dL (10.7-15.3); LYMPH % 19.2 % (8-40); MCH 29.9 pg (25.7-33.7); MCHC 33.5 g/dl (32.0-36.0); MEAN CELL VOLUME 89.3 fl (80-96); MEAN PLT VOLUME 8.8 fl (7.5-11.1); MONO % 7.3 % (3.8-10.2); NEUT % 72.6 % (42.8-82.8); PLATELET COUNT 263 10^3/uL (134-434); RBC 3.71 M/mm3 (3.60-5.2); RDW 12.9 % (11.6-15.6); WHITE BLOOD COUNT 8.6 K/mm3 (4.0-10.0)
[2023-10-23 07:53] LABS: CALCIUM 8.5 mg/dL (8.5-10.1)
[2023-10-23 07:54] LABS: BLOOD UREA NITROGEN 21.3 mg/dL (7-18)
[2023-10-23 08:00] LABS: CREATININE 1.3 mg/dL (0.55-1.3)
[2023-10-23] MEDS: ONDANSETRON 4 MG/2 ML VIAL IVPB ONE (12:56)
[2023-10-23] MEDS: MAG HYDROX/AL HYDROX/SIMETH 30 ML UNIT-DOSE CUP PO PRN (12:57)
[2023-10-23] MEDS: MAGNESIUM HYDROX 2400MG/30ML ORAL SUSPENSION 30 ML CUP PO PRN (12:57)
[2023-10-23] MEDS: SODIUM CHLORIDE 0.45% 1,000 ML IV SCH (13:00)
[2023-10-23] MEDS: GLYCERIN 1 RECTAL SUPPOSITORY, ADULT RC ONE (16:25)
[2023-10-23] MEDS: PANTOPRAZOLE SODIUM 40 MG VIAL IVPUSH SCH (22:15)
[2023-10-24] MEDS: ONDANSETRON 4 MG/2 ML VIAL IVPUSH PRN (03:51)
[2023-10-24 07:00] LABS: HEMATOCRIT 34.7 % (32.4-45.2); HEMOGLOBIN 11.9 GM/dL (10.7-15.3); MCH 30.4 pg (25.7-33.7); MCHC 34.3 g/dl (32.0-36.0); MEAN CELL VOLUME 88.6 fl (80-96); MEAN PLT VOLUME 8.8 fl (7.5-11.1); PLATELET COUNT 266 10^3/uL (134-434); RBC 3.91 M/mm3 (3.60-5.2); RDW 12.8 % (11.6-15.6); WHITE BLOOD COUNT 8.9 K/mm3 (4.0-10.0)
[2023-10-24 07:25] LABS: POTASSIUM 3.8 mmol/L (3.5-5.1)
[2023-10-24 07:37] LABS: ALBUMIN 2.1 g/dl (3.4-5.0)
[2023-10-24 07:38] LABS: BLOOD UREA NITROGEN 24.3 mg/dL (7-18); CALCIUM 8.3 mg/dL (8.5-10.1); MAGNESIUM 2.3 mg/dL (1.8-2.4)
[2023-10-24 07:40] LABS: BILIRUBIN,TOTAL 0.5 mg/dL (0.2-1); CREATININE 1.3 mg/dL (0.55-1.3); PHOSPHOROUS 3.1 mg/dL (2.5-4.9); TOT PROT 5.8 g/dl (6.4-8.2)
[2023-10-24] MEDS: METOCLOPRAMIDE HCL INJECTION 10 MG/2 ML VIAL IVPUSH ONE (10:01)
[2023-10-24] MEDS ORDERED: morphine CARPU-JECT 2 MG/1 ML DISP.SYRIN IVPUSH PRN ×2 (10:03→10:58)
[2023-10-24] MEDS: TRIMETHOBENZAMIDE HCL 200MG/2ML INJ IM PRN (14:21)
[2023-10-24] MEDS ORDERED: MAG HYDROX/AL HYDROX/SIMETH 30 ML UNIT-DOSE CUP PO PRN (14:59)
[2023-10-24] MEDS ORDERED: TRIMETHOBENZAMIDE HCL 200MG/2ML INJ IM PRN (14:59)
[2023-10-24] MEDS: SODIUM CHLORIDE 0.45% 1,000 ML IV SCH (16:12)
[2023-10-24] MEDS: INSULIN ASPART SLIDING SCALE (NOVOLOG) 1 VIAL SQ SCH (17:00)
[2023-10-24] MEDS: LISINOPRIL 20 MG TABLET PO SCH (21:16)
[2023-10-24] MEDS: PANTOPRAZOLE SODIUM 40 MG VIAL IVPUSH SCH (21:16)
[2023-10-24] MEDS: HEPARIN NA (PORCINE) 5,000 UNITS/ML 1ML VIAL SQ SCH (21:17)
[2023-10-24] MEDS: INSULIN (LEVEMIR) 100 UNITS/ML UNITS SQ SCH (21:17)
[2023-10-24] MEDS: ACETAMINOPHEN 500 MG TABLET (FP) PO ONE (21:22)
[2023-10-25] MEDS: FLUTICASONE PROP 0.05% 16 GM NASAL SPRAY NS SCH (00:33)
[2023-10-25] MEDS: ONDANSETRON 4 MG/2 ML VIAL IVPUSH PRN (01:21)
[2023-10-25] MEDS: METOCLOPRAMIDE HCL INJECTION 10 MG/2 ML VIAL IVPUSH ONE (07:39)
[2023-10-25 08:54] LABS: HEMATOCRIT 37.1 % (32.4-45.2); HEMOGLOBIN 12.2 GM/dL (10.7-15.3); MCH 29.2 pg (25.7-33.7); MCHC 32.9 g/dl (32.0-36.0); MEAN CELL VOLUME 88.7 fl (80-96); MEAN PLT VOLUME 8.2 fl (7.5-11.1); PLATELET COUNT 246 10^3/uL (134-434); RBC 4.18 M/mm3 (3.60-5.2); RDW 12.7 % (11.6-15.6); WHITE BLOOD COUNT 7.6 K/mm3 (4.0-10.0)
[2023-10-25 09:20] LABS: POTASSIUM 3.6 mmol/L (3.5-5.1)
[2023-10-25 09:33] LABS: CALCIUM 7.9 mg/dL (8.5-10.1)
[2023-10-25 09:34] LABS: BLOOD UREA NITROGEN 23.9 mg/dL (7-18); MAGNESIUM 2.1 mg/dL (1.8-2.4)
[2023-10-25 09:37] LABS: CREATININE 1.3 mg/dL (0.55-1.3); PHOSPHOROUS 3.4 mg/dL (2.5-4.9)
[2023-10-25 09:38] LABS: BILIRUBIN,TOTAL 0.8 mg/dL (0.2-1)
[2023-10-25 09:39] LABS: TOT PROT 5.8 g/dl (6.4-8.2)
[2023-10-25] MEDS: NIFEdipine E.R 60 MG TABLET PO SCH (10:33)
[2023-10-25] MEDS: CEFTRIAXONE 1 GM in DEXTROSE 5%-WATER - 50 ML IVPB SCH (10:34)
[2023-10-25] MEDS: SODIUM CHLORIDE 1,000 ML IV SCH (10:35)
[2023-10-25] MEDS: NIFEdipine E.R. 30 MG TABLET PO ONE (12:52)
[2023-10-25] MEDS: SODIUM CHLORIDE 0.45% 1,000 ML IV SCH ×2 (15:08→16:53)
[2023-10-25] MEDS: LABETALOL HCL 200 MG TABLET (FP) PO SCH (17:11)
[2023-10-25] MEDS: ACETAMINOPHEN 500 MG TABLET (FP) PO ONE (22:41)
[2023-10-25] MEDS: MECLIZINE HCL 25 MG TABLET (FP) PO PRN (22:41)
[2023-10-26] MEDS: MAGNESIUM HYDROX 2400MG/30ML ORAL SUSPENSION 30 ML CUP PO PRN (06:25)
[2023-10-26 09:48] LABS: BASO % 0.9 % (0-2.0); EOS % 0.2 % (0-4.5); HEMATOCRIT 31.9 % (32.4-45.2); HEMOGLOBIN 11.3 GM/dL (10.7-15.3); LYMPH % 25.9 % (8-40); MCH 30.8 pg (25.7-33.7); MCHC 35.3 g/dl (32.0-36.0); MEAN CELL VOLUME 87.2 fl (80-96); MEAN PLT VOLUME 8.6 fl (7.5-11.1); PLATELET COUNT 235 10^3/uL (134-434); RBC 3.66 M/mm3 (3.60-5.2); RDW 12.8 % (11.6-15.6); WHITE BLOOD COUNT 7.1 K/mm3 (4.0-10.0)
[2023-10-26 10:07] LABS: POTASSIUM 3.7 mmol/L (3.5-5.1)
[2023-10-26 10:10] LABS: ALBUMIN 1.8 g/dl (3.4-5.0); BLOOD UREA NITROGEN 23.8 mg/dL (7-18); CALCIUM 7.6 mg/dL (8.5-10.1); MAGNESIUM 2.4 mg/dL (1.8-2.4)
[2023-10-26 10:13] LABS: CREATININE 1.4 mg/dL (0.55-1.3); PHOSPHOROUS 3.6 mg/dL (2.5-4.9)
[2023-10-26 10:15] LABS: BILIRUBIN,TOTAL 0.6 mg/dL (0.2-1)
[2023-10-26] MEDS: LABETALOL HCL 200 MG TABLET (FP) PO SCH (10:31)
[2023-10-26] MEDS: SODIUM CHLORIDE 0.45% 1,000 ML IV SCH (13:14)
[2023-10-26] MEDS: ACETAMINOPHEN 325 MG TABLET (FP) PO PRN (17:15)
[2023-10-27 06:32] VITALS: RESP 18
[2023-10-27 09:01] LABS: HEMATOCRIT 31.4 % (32.4-45.2); HEMOGLOBIN 10.9 GM/dL (10.7-15.3); MCH 30.3 pg (25.7-33.7); MCHC 34.8 g/dl (32.0-36.0); MEAN CELL VOLUME 87.3 fl (80-96); MEAN PLT VOLUME 8.2 fl (7.5-11.1); PLATELET COUNT 218 10^3/uL (134-434); RDW 13.2 % (11.6-15.6); WHITE BLOOD COUNT 6.7 K/mm3 (4.0-10.0)
[2023-10-27 09:26] LABS: POTASSIUM 3.9 mmol/L (3.5-5.1)
[2023-10-27 09:28] LABS: ALBUMIN 1.8 g/dl (3.4-5.0); BLOOD UREA NITROGEN 15.8 mg/dL (7-18); CALCIUM 7.5 mg/dL (8.5-10.1); MAGNESIUM 2.4 mg/dL (1.8-2.4)
[2023-10-27 09:31] LABS: CREATININE 1.4 mg/dL (0.55-1.3); PHOSPHOROUS 2.6 mg/dL (2.5-4.9)
[2023-10-27 09:33] LABS: BILIRUBIN,TOTAL 0.4 mg/dL (0.2-1); TOT PROT 4.8 g/dl (6.4-8.2)
[2023-10-27] MEDS: ACETAMINOPHEN 1000 MG/100 ML BAG IVPB ONE (11:38)
[2023-10-27] MEDS: TOPIRAMATE 25 MG TABLET PO SCH (14:18)
[2023-10-27] MEDS: INSULIN (LEVEMIR) 100 UNITS/ML UNITS SQ SCH (21:41)
[2023-10-27] MEDS ORDERED: LISINOPRIL 20 MG TABLET PO SCH (22:00)
[2023-10-28] MEDS: INSULIN (LEVEMIR) 100 UNITS/ML UNITS SQ SCH (05:59)
[2023-10-28] MEDS: PANTOPRAZOLE 40 MG TABLET PO SCH (09:37)
[2023-10-28 11:08] LABS: HEMATOCRIT 29.7 % (32.4-45.2); HEMOGLOBIN 10.2 GM/dL (10.7-15.3); MCH 30.2 pg (25.7-33.7); MCHC 34.3 g/dl (32.0-36.0); MEAN PLT VOLUME 9.2 fl (7.5-11.1); PLATELET COUNT 231 10^3/uL (134-434); RBC 3.37 M/mm3 (3.60-5.2); RDW 13.2 % (11.6-15.6); WHITE BLOOD COUNT 7.2 K/mm3 (4.0-10.0)
[2023-10-28 11:30] LABS: POTASSIUM 4.2 mmol/L (3.5-5.1)
[2023-10-28 11:32] LABS: CALCIUM 7.5 mg/dL (8.5-10.1)
[2023-10-28 11:33] LABS: ALBUMIN 1.7 g/dl (3.4-5.0); BLOOD UREA NITROGEN 13.2 mg/dL (7-18); MAGNESIUM 2.3 mg/dL (1.8-2.4)
[2023-10-28 11:36] LABS: CREATININE 1.4 mg/dL (0.55-1.3); PHOSPHOROUS 2.6 mg/dL (2.5-4.9)
[2023-10-28 11:38] LABS: BILIRUBIN,TOTAL 0.4 mg/dL (0.2-1); TOT PROT 4.7 g/dl (6.4-8.2)
[2023-10-28 13:12] VITALS: TEMP 98.5
[2023-10-28 13:23] VITALS: BP 133/78; PULSE 78
== END 2023-10-28 15:12 | disposition home or self-care (01) | DRG 48 ==
LOC: JER 20:37 → JERBED 10-21 00:05 → OBSVTOIN 10-21 01:40 → JERBED 10-21 14:28 → J4W 10-22 05:40 → J5S 10-24 14:59
PROVIDERS: ADMIT Internal Medicine
DX: E11.43 Type 2 diabetes mellitus with diabetic autonomic (poly)neuropathy (principal); E11.65 Type 2 diabetes mellitus with hyperglycemia; K31.84 Gastroparesis; N39.0 Urinary tract infection, site not specified; G43.909 Migraine, unspecified, not intractable, without status migrainosus; E11.22 Type 2 diabetes mellitus with diabetic chronic kidney disease; I12.9 Hypertensive chronic kidney disease with stage 1 through stage 4 chronic kidney disease, or unspecified chronic kidney disease; N18.9 Chronic kidney disease, unspecified; E78.5 Hyperlipidemia, unspecified; R11.2 Nausea with vomiting, unspecified; I25.10 Atherosclerotic heart disease of native coronary artery without angina pectoris; K59.00 Constipation, unspecified; K76.0 Fatty (change of) liver, not elsewhere classified; K27.9 Peptic ulcer, site unspecified, unspecified as acute or chronic, without hemorrhage or perforation; H91.91 Unspecified hearing loss, right ear; N17.9 Acute kidney failure, unspecified; E11.42 Type 2 diabetes mellitus with diabetic polyneuropathy; B96.1 Klebsiella pneumoniae [K. pneumoniae] as the cause of diseases classified elsewhere
CPT/HCPCS: 0241U-QW; 36415; 70450-TC; 70551-TC; 71045-TC-FY; 74240-TC-FY; 76700-TC; 80048; 80053; 81003; 82010; 82803; 82962; 83036; 83540; 83550; 83605; 83690; 83735; 84100; 84484; 84703; 85025; 85027; 87086; 87186; 93005; 93010; 97116-GP; 97161-GP; 99285-25; G0378; J0131; J1644

== ENCOUNTER 2024-02-08 10:12 | Emergency (ER) | payer OTHER ==
[2024-02-08 10:19] VITALS: BP 171/79; PULSE 95; RESP 18; TEMP 97.7; BMI 29.0
[2024-02-08 11:13] LABS: BASO % 1.3 % (0-2.0); EOS % 0.8 % (0-4.5); HEMATOCRIT 32.8 % (32.4-45.2); HEMOGLOBIN 11.2 GM/dL (10.7-15.3); LYMPH % 15.8 % (8-40); MCH 29.7 pg (25.7-33.7); MEAN CELL VOLUME 87.4 fl (80-96); MONO % 7.4 % (3.8-10.2); NEUT % 74.7 % (42.8-82.8); PLATELET COUNT 303 10^3/uL (134-434); RBC 3.75 M/mm3 (3.60-5.2); RDW 12.8 % (11.6-15.6); WHITE BLOOD COUNT 7.3 K/mm3 (4.0-10.0)
[2024-02-08 11:16] LABS: EPI CELLS 33 /uL (0-25.1); HYALINE CASTS 5 /uL (0-3.1); URINE APPEARANCE CLOUDY; URINE BILIRUBIN NEGATIVE (NEGATIVE); URINE COLOR YELLOW; URINE GLUCOSE (UA) 3+ (NEGATIVE); URINE KETONE TRACE (NEGATIVE); URINE LEUK ESTERASE TRACE (NEGATIVE); URINE NITRITE NEGATIVE (NEGATIVE); URINE PROTEIN 4+ (NEGATIVE); URINE RBC 79 /uL (0-23.9); URINE UROBILINOGEN 0.2 mg/dL (0.2-1.0); URINE WBC 784 /uL (0-25.8)
[2024-02-08] MEDS ORDERED: MAG HYDROX/AL HYDROX/SIMETH 30 ML UNIT-DOSE CUP ONE (11:48)
[2024-02-08] MEDS ORDERED: FAMOTIDINE 20 MG TABLET ONE (11:48)
[2024-02-08 11:51] LABS: URINE BACTERIA >9,000 /uL (0-1359)
[2024-02-08] MEDS ORDERED: PANTOPRAZOLE SODIUM 40 MG/100 ML BAG IVPB ONE (11:51)
[2024-02-08] MEDS: PANTOPRAZOLE SODIUM 40 MG VIAL IVPUSH ONE (11:57)
[2024-02-08] MEDS: FAMOTIDINE 20 MG TABLET PO ONE (11:57)
[2024-02-08] MEDS: MAG HYDROX/AL HYDROX/SIMETH 30 ML UNIT-DOSE CUP PO ONE (11:57)
[2024-02-08] MEDS ORDERED: SULFAMETHOXAZOLE/TRIMETHOPRIM 800MG/160MG D.S. TABLET ONE (12:06)
[2024-02-08] MEDS: SULFAMETHOXAZOLE/TRIMETHOPRIM 800MG/160MG D.S. TABLET PO ONE (12:09)
[2024-02-08 12:13] LABS: POTASSIUM 4.4 mmol/L (3.5-5.1)
[2024-02-08 12:15] LABS: CALCIUM 9.9 mg/dL (8.5-10.1)
[2024-02-08 12:16] LABS: BLOOD UREA NITROGEN 27.2 mg/dL (7-18)
[2024-02-08 12:19] LABS: CREATININE 1.7 mg/dL (0.55-1.3)
[2024-02-08 12:20] LABS: BILIRUBIN,TOTAL 0.8 mg/dL (0.2-1); TOT PROT 7.1 g/dl (6.4-8.2)
[2024-02-08] MEDS: SODIUM CHLORIDE 0.9% 500 ML INFUS.BAG IV ONE (12:57)
== END 2024-02-08 12:58 | disposition home or self-care (01) ==
LOC: JER 10:12
PROC: 3E033GC Introduction of Other Therapeutic Substance into Peripheral Vein, Percutaneous Approach (ICD-10-PCS; principal; 2024-02-08)
DX: N39.0 Urinary tract infection, site not specified (principal); K29.70 Gastritis, unspecified, without bleeding; R10.13 Epigastric pain; R11.10 Vomiting, unspecified
CPT/HCPCS: 36415; 80053; 81003; 83690; 84484; 85025; 87086; 87186; 93005; 93010; 99284-25

== ENCOUNTER 2024-08-21 17:31 | Emergency (ER) | payer OTHER ==
[2024-08-21 17:48] VITALS: TEMP 98.6; BMI 25.8
[2024-08-21] MEDS ORDERED: ACETAMINOPHEN INJECTION 100 ML ONE (18:33)
[2024-08-21] MEDS ORDERED: FAMOTIDINE 20 MG/50 ML IVPB 20 MG/50 ML MG IVPB ONE (18:34)
[2024-08-21] MEDS: ACETAMINOPHEN 1000 MG/100 ML BAG IVPB ONE (18:57)
[2024-08-21] MEDS: FAMOTIDINE 20 MG/50 ML IVPB 20 MG/50 ML MG IVPB ONE (18:57)
[2024-08-21] MEDS: LACTATED RINGERS SOLUTION 1000 ML INFUS.BAG IV ONE ×2 (18:57→19:50)
[2024-08-21 19:08] LABS: VENOUS BASE EXCESS -2.6 mmol/L (-2-2); VENOUS PH 7.405 (7.310-7.410)
[2024-08-21 19:12] LABS: ABSOLUTE IMMATURE GRANULOCYTES 0.03 x10^3/uL (0.0-0.031); BASOPHILS # 0.03 x10^3/uL (0.01-0.08); EOSINOPHIL % 0.1 % (0.7-5.8); EOSINOPHILS # 0.01 x10^3/uL (0.04-0.36); HEMATOCRIT 37.9 % (34.1-44.9); HEMOGLOBIN 12.7 g/dL (11.2-15.7); MCHC 33.5 g/dl (32.2-35.5); MEAN CELL VOLUME 86.3 fl (79.4-94.8); MEAN PLT VOLUME 10.8 fl (9.4-12.3); MONOCYTE # 0.27 x10^3/uL (0.24-0.86); MONOCYTE % 2.9 % (4.7-12.5); PLATELET COUNT 289 x10^3/uL (182-369); RDW 12.3 % (12.3-16.6)
[2024-08-21 19:36] LABS: CALCIUM 9.1 mg/dL (8.5-10.1)
[2024-08-21 19:37] LABS: ALBUMIN 2.7 g/dl (3.4-5.0); BLOOD UREA NITROGEN 30.4 mg/dL (7-18)
[2024-08-21 19:40] LABS: CREATININE 1.8 mg/dL (0.55-1.3)
[2024-08-21 19:41] LABS: BILIRUBIN,TOTAL 0.8 mg/dL (0.2-1); TOT PROT 7.3 g/dl (6.4-8.2)
[2024-08-21 19:52] LABS: POTASSIUM 5.6 mmol/L (3.5-5.1)
[2024-08-21 20:08] VITALS: BP 152/86; PULSE 111; RESP 17
[2024-08-21] MEDS ORDERED: MAG HYDROX/AL HYDROX/SIMETH 30 ML UNIT-DOSE CUP ONE (20:23)
[2024-08-21] MEDS: MAG HYDROX/AL HYDROX/SIMETH 30 ML UNIT-DOSE CUP PO ONE (20:24)
[2024-08-21 21:12] LABS: POTASSIUM 4.9 mmol/L (3.5-5.1)
[2024-08-21 21:14] LABS: BLOOD UREA NITROGEN 30.5 mg/dL (7-18); CALCIUM 8.9 mg/dL (8.5-10.1)
[2024-08-21 21:18] LABS: CREATININE 1.7 mg/dL (0.55-1.3)
== END 2024-08-21 23:06 | disposition home or self-care (01) ==
LOC: JER 17:31
PROC: 3E033GC Introduction of Other Therapeutic Substance into Peripheral Vein, Percutaneous Approach (ICD-10-PCS; principal; 2024-08-21)
PROC: 3E033NZ Introduction of Analgesics, Hypnotics, Sedatives into Peripheral Vein, Percutaneous Approach (ICD-10-PCS; 2024-08-21)
DX: K29.70 Gastritis, unspecified, without bleeding (principal); R10.13 Epigastric pain; R11.2 Nausea with vomiting, unspecified; R00.0 Tachycardia, unspecified; E11.65 Type 2 diabetes mellitus with hyperglycemia
CPT/HCPCS: 0241U-QW; 36415; 80048; 80053; 82010; 82803; 82962; 83605; 83690; 83735; 84484; 85025; 93005; 93010; 99284-25; J0131

== ENCOUNTER 2024-08-23 04:09 | Inpatient (IN) | payer OTHER ==
[2024-08-23 04:41] LABS: ABSOLUTE IMMATURE GRANULOCYTES 0.03 x10^3/uL (0.0-0.031); BASOPHILS # 0.04 x10^3/uL (0.01-0.08); HEMATOCRIT 35.1 % (34.1-44.9); HEMOGLOBIN 11.4 g/dL (11.2-15.7); MCHC 32.5 g/dl (32.2-35.5); MEAN CELL VOLUME 87.8 fl (79.4-94.8); MEAN PLT VOLUME 10.4 fl (9.4-12.3); MONOCYTE # 0.65 x10^3/uL (0.24-0.86); MONOCYTE % 6.4 % (4.7-12.5); PLATELET COUNT 267 x10^3/uL (182-369); RDW 12.3 % (12.3-16.6)
[2024-08-23] MEDS: SODIUM CHLORIDE 0.9% 500 ML INFUS.BAG IV ONE (05:00)
[2024-08-23 05:01] LABS: POTASSIUM 4.1 mmol/L (3.5-5.1)
[2024-08-23] MEDS ORDERED: ONDANSETRON 4 MG/2 ML VIAL ONE ×2 (05:03→07:36)
[2024-08-23] MEDS ORDERED: ACETAMINOPHEN INJECTION 100 ML ONE (05:03)
[2024-08-23 05:04] LABS: CALCIUM 8.6 mg/dL (8.5-10.1)
[2024-08-23 05:05] LABS: ALBUMIN 2.3 g/dl (3.4-5.0); BLOOD UREA NITROGEN 32.7 mg/dL (7-18)
[2024-08-23 05:10] LABS: BILIRUBIN,TOTAL 0.6 mg/dL (0.2-1); TOT PROT 5.8 g/dl (6.4-8.2)
[2024-08-23] MEDS: ONDANSETRON 4 MG/2 ML VIAL IVPUSH ONE (05:12)
[2024-08-23] MEDS: ACETAMINOPHEN 1000 MG/100 ML BAG IVPB ONE (05:12)
[2024-08-23] MEDS ORDERED: FAMOTIDINE 20 MG/50 ML IVPB 20 MG/50 ML MG IVPB ONE (05:35)
[2024-08-23] MEDS ORDERED: MAG HYDROX/AL HYDROX/SIMETH 30 ML UNIT-DOSE CUP ONE (05:35)
[2024-08-23] MEDS: MAG HYDROX/AL HYDROX/SIMETH -MYLANTA- ORAL SUSPENSION PO ONE (05:38)
[2024-08-23] MEDS: FAMOTIDINE 20 MG/50 ML IVPB 20 MG/50 ML MG IVPB ONE (05:38)
[2024-08-23] MEDS ORDERED: LABETALOL HCL 20 MG/4 ML VIAL IVPUSH ONE (06:40)
[2024-08-23] MEDS ORDERED: LABETALOL HCL 20 MG/4 ML VIAL ONE ×2 (06:45→13:27)
[2024-08-23] MEDS: LABETALOL HCL 20 MG/4 ML VIAL IVPUSH ONE ×2 (06:48→13:44)
[2024-08-23] MEDS ORDERED: KETOROLAC TROMETHAMINE 15 MG/ML VIAL ONE (07:36)
[2024-08-23] MEDS: KETOROLAC TROMETHAMINE 15 MG/ML VIAL IVPUSH ONE (07:47)
[2024-08-23] MEDS: ONDANSETRON 4 MG/2 ML VIAL IVPB ONE (07:47)
[2024-08-23] MEDS: morphine CARPU-JECT 4 MG/1 ML DISP.SYRIN IVPUSH ONE (10:49)
[2024-08-23] MEDS ORDERED: morphine SULFATE 4 MG/ML VIAL ONE (11:56)
[2024-08-23] MEDS: morphine SULFATE 4 MG/ML VIAL IVPUSH ONE (12:15)
[2024-08-23] MEDS ORDERED: NIFEdipine E.R. 30 MG TABLET PO ONE (12:43)
[2024-08-23] MEDS ORDERED: LISINOPRIL 20 MG TABLET ONE (12:43)
[2024-08-23] MEDS ORDERED: NIFEdipine E.R 60 MG TABLET PO ONE (12:43)
[2024-08-23] MEDS: LISINOPRIL 20 MG TABLET PO ONE (12:46)
[2024-08-23] MEDS: NIFEdipine E.R. 90 MG TABLET PO SCH (12:46)
[2024-08-23] MEDS: NICARDIPINE 25 MG in DEXTROSE 5%-WATER - 240 ML IVPB SCH ×2 (16:34→20:39)
[2024-08-23] MEDS: METOCLOPRAMIDE HCL INJECTION 10 MG/2 ML VIAL IVPUSH ONE (16:48)
[2024-08-23] MEDS ORDERED: MUPIROCIN 2% TOPICAL OINTMENT FOR DECOLONIZATION NS SCH ×2 (22:00)
[2024-08-23] MEDS ORDERED: CHLORHEXIDINE GLUCONATE 4% CLEANSER FOR DECOLONIZATION TP SCH ×2 (22:00)
[2024-08-23] MEDS: CHLORHEXIDINE GLUCONATE 4% CLEANSER FOR DECOLONIZATION TP SCH (22:12)
[2024-08-23] MEDS: MUPIROCIN 2% TOPICAL OINTMENT FOR DECOLONIZATION NS SCH (22:12)
[2024-08-24 07:07] LABS: ABSOLUTE IMMATURE GRANULOCYTES 0.03 x10^3/uL (0.0-0.031); BASOPHILS # 0.07 x10^3/uL (0.01-0.08); EOSINOPHIL % 0.6 % (0.7-5.8); EOSINOPHILS # 0.05 x10^3/uL (0.04-0.36); HEMATOCRIT 35.1 % (34.1-44.9); HEMOGLOBIN 11.5 g/dL (11.2-15.7); MCHC 32.8 g/dl (32.2-35.5); MEAN CELL VOLUME 89.1 fl (79.4-94.8); MEAN PLT VOLUME 10.2 fl (9.4-12.3); MONOCYTE # 0.89 x10^3/uL (0.24-0.86); MONOCYTE % 10.8 % (4.7-12.5); PLATELET COUNT 252 x10^3/uL (182-369); RDW 12.1 % (12.3-16.6)
[2024-08-24 07:16] LABS: INR 0.94 (0.83-1.09); PROTHROMBIN TIME (PATIENT) 10.2 SEC (9.7-13.0)
[2024-08-24 07:25] LABS: POTASSIUM 3.8 mmol/L (3.5-5.1)
[2024-08-24 07:28] LABS: BLOOD UREA NITROGEN 30.8 mg/dL (7-18); MAGNESIUM 2.5 mg/dL (1.8-2.4)
[2024-08-24 07:31] LABS: PHOSPHOROUS 3.2 mg/dL (2.5-4.9)
[2024-08-24 07:32] LABS: BILIRUBIN,TOTAL 0.3 mg/dL (0.2-1); TOT PROT 5.4 g/dl (6.4-8.2)
[2024-08-24] MEDS: PANTOPRAZOLE SODIUM 40 MG VIAL IVPUSH SCH (09:25)
[2024-08-24 09:26] LABS: EPI CELLS >36 /uL (0-25.1); HYALINE CASTS 3 /uL (0-3.1); PH,URINE 6.5 (5.0-8.0); URINE APPEARANCE CLOUDY; URINE BACTERIA 1028 /uL (0-1359); URINE BILIRUBIN NEGATIVE (NEGATIVE); URINE COLOR YELLOW; URINE GLUCOSE (UA) 3+ (NEGATIVE); URINE KETONE NEGATIVE (NEGATIVE); URINE LEUK ESTERASE NEGATIVE (NEGATIVE); URINE NITRITE NEGATIVE (NEGATIVE); URINE PROTEIN 4+ (NEGATIVE); URINE RBC 29 /uL (0-23.9); URINE UROBILINOGEN 0.2 mg/dL (0.2-1.0)
[2024-08-24] MEDS: ONDANSETRON 4 MG/2 ML VIAL IVPUSH ONE (09:26)
[2024-08-24] MEDS: ACETAMINOPHEN 1000 MG/100 ML BAG IVPB ONE ×2 (09:26→16:40)
[2024-08-24] MEDS: POLYETHYLENE GLYCOL (HEALTHYLAX) 3350 17 GM PACKET PO SCH (09:32)
[2024-08-24] MEDS ORDERED: PANTOPRAZOLE 40 MG TABLET PO SCH (10:00)
[2024-08-24] MEDS: NIFEdipine E.R. 90 MG TABLET PO SCH (11:54)
[2024-08-24] MEDS: INSULIN ASPART SLIDING SCALE (NOVOLOG) 1 VIAL SQ SCH (12:35)
[2024-08-24 14:00] VITALS: BMI 23.3
[2024-08-24] MEDS: LABETALOL HCL 100 MG TABLET (FP) PO SCH (15:04)
[2024-08-24] MEDS: MAG HYDROX/AL HYDROX/SIMETH 30 ML UNIT-DOSE CUP PO ONE (18:30)
[2024-08-25 06:48] LABS: HEMATOCRIT 32.7 % (34.1-44.9); HEMOGLOBIN 10.7 g/dL (11.2-15.7); MCHC 32.7 g/dl (32.2-35.5); MEAN CELL VOLUME 88.1 fl (79.4-94.8); MEAN PLT VOLUME 10.5 fl (9.4-12.3); PLATELET COUNT 228 x10^3/uL (182-369); RDW 11.8 % (12.3-16.6)
[2024-08-25 07:08] LABS: POTASSIUM 3.9 mmol/L (3.5-5.1)
[2024-08-25 07:11] LABS: CALCIUM 7.9 mg/dL (8.5-10.1)
[2024-08-25 07:12] LABS: MAGNESIUM 2.5 mg/dL (1.8-2.4)
[2024-08-25 07:13] LABS: BLOOD UREA NITROGEN 32.8 mg/dL (7-18)
[2024-08-25 07:15] LABS: PHOSPHOROUS 3.4 mg/dL (2.5-4.9)
[2024-08-25 07:17] LABS: BILIRUBIN,TOTAL 0.3 mg/dL (0.2-1); CREATININE 2.1 mg/dL (0.55-1.3); TOT PROT 5.2 g/dl (6.4-8.2)
[2024-08-25] MEDS: INSULIN (NOVOLOG) ASPART 100 UNITS/ML 10ML VIAL SQ SCH (12:16)
[2024-08-25] MEDS: POLYETHYLENE GLYCOL (HEALTHYLAX) 3350 17 GM PACKET PO SCH (15:07)
[2024-08-25] MEDS: LABETALOL HCL 20 MG/4 ML VIAL IVPUSH ONE (18:19)
[2024-08-25] MEDS: PANTOPRAZOLE 40 MG TABLET PO SCH (21:35)
[2024-08-25] MEDS: INSULIN GLARGINE (LANTUS) 100 UNITS/ML UNITS SQ SCH (21:36)
[2024-08-26] MEDS: POLYETHYLENE GLYCOL (HEALTHYLAX) 3350 17 GM PACKET PO SCH (05:07)
[2024-08-26] MEDS: INSULIN ASPART SLIDING SCALE (NOVOLOG) 1 VIAL SQ SCH (06:44)
[2024-08-26 08:38] LABS: POTASSIUM 3.4 mmol/L (3.5-5.1)
[2024-08-26 08:46] LABS: CALCIUM 8.2 mg/dL (8.5-10.1)
[2024-08-26 08:49] LABS: CREATININE 1.9 mg/dL (0.55-1.3)
[2024-08-26 09:15] LABS: HEMATOCRIT 31.8 % (34.1-44.9); HEMOGLOBIN 10.4 g/dL (11.2-15.7); MCHC 32.7 g/dl (32.2-35.5); MEAN CELL VOLUME 88.3 fl (79.4-94.8); MEAN PLT VOLUME 10.6 fl (9.4-12.3); PLATELET COUNT 248 x10^3/uL (182-369); RDW 11.9 % (12.3-16.6)
[2024-08-26] MEDS: NIFEdipine E.R. 90 MG TABLET PO SCH (09:47)
[2024-08-26] MEDS: LISINOPRIL 20 MG TABLET PO SCH (09:47)
[2024-08-26] MEDS: PANTOPRAZOLE 40 MG TABLET PO SCH (09:47)
[2024-08-26 14:45] VITALS: RESP 20
[2024-08-26] MEDS: POTASSIUM CHLORIDE ORAL LIQUID 20 MEQ/15 ML PO ONE (16:37)
[2024-08-26 18:17] VITALS: BP 124/58; PULSE 87; TEMP 99.1
== END 2024-08-26 18:14 | disposition home or self-care (01) | DRG 199 ==
LOC: JER 04:09 → JERBED 09:13 → INTOOBSV 09:13 → OBSVTOIN 09:13 → UNDOADMOB 09:13 → JICU 16:27 → J5S 08-25 19:56
PROVIDERS: ADMIT Internal Medicine Pulmonary Disease; ATTEND Internal Medicine
PROC: 0DB68ZX Excision of Stomach, Via Natural or Artificial Opening Endoscopic, Diagnostic (ICD-10-PCS; 2024-08-25)
PROC: 0DB58ZX Excision of Esophagus, Via Natural or Artificial Opening Endoscopic, Diagnostic (ICD-10-PCS; principal; 2024-08-25 09:05)
DX: I16.1 Hypertensive emergency (principal); K31.84 Gastroparesis; K92.0 Hematemesis; N17.9 Acute kidney failure, unspecified; E11.22 Type 2 diabetes mellitus with diabetic chronic kidney disease; E11.43 Type 2 diabetes mellitus with diabetic autonomic (poly)neuropathy; K22.10 Ulcer of esophagus without bleeding; B96.81 Helicobacter pylori [H. pylori] as the cause of diseases classified elsewhere; K29.50 Unspecified chronic gastritis without bleeding; K21.00 Gastro-esophageal reflux disease with esophagitis, without bleeding; K44.9 Diaphragmatic hernia without obstruction or gangrene; N28.1 Cyst of kidney, acquired; E78.5 Hyperlipidemia, unspecified
CPT/HCPCS: 0241U-QW; 36415; 70450-TC; 74176-TC; 76705-TC; 76775-TC; 80048; 80053; 81003; 82570; 82962; 83036; 83605; 83690; 83735; 84100; 84156; 84484; 85025; 85027; 85610; 85730; 88305-TC; 88312-TC; 88342-TC; 93005; 93010; 99285-25; J0131